=== PATIENT | female | born 1925 | race Caucasian/White ===

== ENCOUNTER 2016-12-16 10:59 | Emergency (ER) | payer MEDICARE, BC ==
[2016-12-16 11:35] VITALS: BP 181/70
--- NOTE | 2016-12-16 13:04 | UC ---
General HPI - HPI Summary HPI Summary: This is an 89 yo female who moved to the area from [place] ~1 month ago who presented requesting a refill of her Lunesta. She reports the medication works well. Offers, no acute concerns. She reports she has a new pt appointment at the [facility] in [place] for early March and her prior PCP was unwilling to send the Rx to her new pharmacy. <Harlan Ramos - Last Filed: 12/16/16 12:58> <Inna Pineda - Last Filed: 12/16/16 20:43> - History of Current Complaint Chief Complaint: UCMedRefill Stated Complaint: MED REFILL - Allergy/Home Medications Allergies/Adverse Reactions: Allergies Allergy/AdvReac Type Severity Reaction Status Date / Time Tetanus Toxoid Allergy Hives Verified 12/16/16 11:25 Home Medications: Home Medications Amlodipine Besylate [Norvasc 10 mg tab] 10 mg PO DAILY 12/16/16 [History Confirmed 12/16/16] Atenolol TAB* [Tenormin TAB* 50 MG] 1 tab PO BID 12/16/16 [History Confirmed ] Calcium [Elite Calcium] 1 tab PO BID 12/16/16 [History Confirmed 12/16/16] Clopidogrel TAB* [Plavix TAB*] 75 mg PO DAILY 12/16/16 [History Confirmed ] Flaxseed (Linseed) [Flax Seeds] 12/16/16 [History] Fluvastatin Sodium [Lescol Xl] 1 tab PO DAILY 12/16/16 [History Confirmed ] Magnesium [Magnesium Elemental] 1 tab PO BID 12/16/16 [History Confirmed ] Metoclopramide TAB* [Reglan TAB*] 5 mg PO BID 12/16/16 [History Confirmed ] Multiple Vitamin [Multivitamins] 1 PO DAILY 12/16/16 [History] Ranitidine TAB (NF) [Zantac TAB (NF)] 1 tab PO BID 12/16/16 [History Confirmed 12/16/16] PMH/Surg Hx/FS Hx/Imm Hx Cardiovascular History: Hypertension, Other Other Cardiovascular History: mitral valve prolapse Respiratory History: COPD - Surgical History Surgical History: Yes Surgery Procedure, Year, and Place: Mastectomy. Tonsils. Bladder. Partial Hysterectomy - Family History Known Family History: Positive: None - Social History Alcohol Use: Rare Substance Use Type: None Smoking Status (MU): Former Smoker When Did the Patient Quit Smoking/Using Tobacco: 40 years ago <Harlan Ramos - Last Filed: 12/16/16 12:58> Review of Systems Constitutional: Negative Skin: Negative Eyes: Negative ENT: Negative Respiratory: Negative Cardiovascular: Negative Gastrointestinal: Negative Genitourinary: Negative Motor: Negative Neurovascular: Negative Musculoskeletal: Negative Neurological: Negative Psychological: Negative All Other Systems Reviewed And Are Negative: Yes <TaylorlilianaHarlan manriquez - Last Filed: 12/16/16 12:58> Physical Exam Triage Information Reviewed: Yes Appearance: Well-Appearing - accompanied by her son Vital Signs: Initial Vital Signs Temp 97.4 F 12/16/16 11:30 Pulse 62 12/16/16 11:30 Resp 16 12/16/16 11:30 BP 181/70 12/16/16 11:30 Pulse Ox 95 12/16/16 11:30 Vital Signs Reviewed: Yes Eyes: Positive: Other: - noted conjuntival hemorrhage ENT Exam: Normal Neck exam: Normal Neck: Positive: Supple, Nontender Respiratory: Positive: Chest non-tender, Lungs clear, Normal breath sounds. Negative: Crackles, Rhonchi, Wheezing Cardiovascular: Positive: RRR, No Murmur Abdomen Description: Positive: Nontender Musculoskeletal: Positive: Strength Intact Neurological: Positive: Alert Psychological: Positive: Normal Response To Family Skin Exam: Normal <Harlan Ramos - Last Filed: 12/16/16 12:58> Vital Signs: Initial Vital Signs Temp 97.4 F 12/16/16 11:30 Pulse 62 12/16/16 11:30 Resp 16 12/16/16 11:30 BP 181/70 12/16/16 11:30 Pulse Ox 95 12/16/16 11:30 <Inna Pineda - Last Filed: 12/16/16 20:43> Course/Dx - Course Course Of Treatment: This is an 89 yo female requesting refill for Lunesta. I- stop checked and she has been timely with prior refills and is currently on time. No additional concerns, has pending MANAGER CHEMISTRY appointment with PCP - Differential Dx - Multi-Symptom Provider Diagnoses: 1. Insomnia - medication refill <Harlan Ramos - Last Filed: 12/16/16 12:58> Discharge <Harlan Ramos - Last Filed: 12/16/16 12:58> <Inna Pineda - Last Filed: 12/16/16 20:43> - Discharge Plan Condition: Stable Disposition: HOME Prescriptions: Eszopiclone [Lunesta] 3 mg PO BEDTIME #30 tab MDD 1 tab Eszopiclone (NF) [Lunesta (NF)] 3 mg PO BEDTIME #30 tab MDD 1 tab Patient Education Materials: Eszopiclone (By mouth) Referrals: No Primary Care Phys,NOPCP [Primary Care Provider] - Additional Instructions: Instructions: 1. Take medication as directed 2. Continue to work on establishing a new primary care provider Attestation Statement User Type: Provider - I was available for consult. This patient was seen by the NILSA. The patient was not presented to, seen by, or examined by me. -Jose De Jesus <Inna Pineda - Last Filed: 12/16/16 20:43>
== END 2016-12-16 12:57 | disposition home or self-care (01) ==
LOC: UCEAST 10:59
DX: G47.00 Insomnia, unspecified (principal); F12.10 Cannabis abuse, uncomplicated; I10 Essential (primary) hypertension; J44.9 Chronic obstructive pulmonary disease, unspecified
CPT/HCPCS: 99202; G0463